=== PATIENT | female | born 1985 | race Two or more races ===

== ENCOUNTER → 2021-04-18 | Outpatient (CLI) | payer OTHER, SELFPAY ==
[2021-04-26 13:42] LABS: HPV APTIMA, High Risk Negative (Negative)
== END | disposition home or self-care (01) ==
PROVIDERS: Visit Provider Obstetrics & Gynecology
DX: Z12.4 Encounter for screening for malignant neoplasm of cervix (principal)
CPT/HCPCS: 87624; 88175; G0145